=== PATIENT | male | born 1935 | race Caucasian/White ===

== ENCOUNTER 2019-06-17 08:09 | Observation (INO) ==
[2019-06-17] MEDS ORDERED: 0.9 % Sodium Chloride 1,000 ML IVC ONE (08:18)
[2019-06-17] MEDS ORDERED: Potassium Chloride Elixir 20 MEQ/15 ML UDC PO ONE (08:19)
[2019-06-17 08:52] LABS: Basophils % 0.4 %; Eosinophils % 0.2 %; Hematocrit 40.7 % (37.5-50.1); Hemoglobin 13.1 g/dL (12.9-16.9); INR 1.3; Immature Granulocytes % 1.7 % (0-4); Lymphocytes # 0.7 K/mcL (0.6-4.6); Lymphocytes % 6.1 %; Mean Corpuscular HGB Conc 32.2 g/dL (31.6-35.5); Mean Corpuscular Hemoglobin 28.7 pg (28.0-33.3); Mean Corpuscular Volume 89.1 fL (83.0-100.0); Mean Platelet Volume 9.4 fL (9.4-12.4); Monocytes # 0.9 K/mcL (0.0-1.3); Monocytes % 7.9 %; Neutrophils # 9.3 K/mcL (1.6-8.9); Platelet Count 236 K/mcL (140-400); Prothrombin Time 14.3 Seconds (9.4-12.1); Red Blood Count 4.57 M/mcL (4.19-5.50); Red Cell Distribution Width 13.3 % (11.5-14.5); Segmented Neutrophils % 83.7 %; White Blood Count 11.1 K/mcL (4.3-11.1)
[2019-06-17 08:55] LABS: Activated Partial Thrombo Time 26.6 Seconds (26.0-36.0)
[2019-06-17 09:03] LABS: BUN/Creatinine Ratio 30 (6-26); Blood Urea Nitrogen 26 mg/dL (8-23); Calcium 8.8 mg/dL (8.6-10.3); Carbon Dioxide 35 mEq/L (23-29); Chloride 100 mEq/L (98-107); Glucose 54 mg/dL (70-105); Osmolality,Calculated 292 (280-300); Potassium 3.3 mEq/L (3.5-5.1); Sodium 140 mEq/L (136-145); eGFR For African Americans > 60 (> 60); eGFR For Non-African Americans > 60 (> 60)
[2019-06-17 09:21] LABS: Bilirubin,Urine Negative (Negative); Blood,Urine Small (Negative); Clarity,Urine Clear (Clear); Color,Urine Yellow (Yellow); Glucose,Urine (UA) Normal (Normal); Ketones,Urine Negative (Negative); Leukocyte Esterase,Urine Negative (Negative); Nitrite,Urine Negative (Negative); Protein,Urine 30 mg/dL (Neg-Trace); Urobilinogen,Urine >=8.0 mg/dL (Normal)
[2019-06-17 09:54] LABS: Bacteria,Urine Few per hpf (None-Few); RBC,Urine 15-30 per hpf (0-3); Squamous Epithelial Cell,Urine Few per lpf (None-Few); WBC,Urine 0-3 per hpf (0-3)
[2019-06-17 10:11] LABS: Alanine Aminotransferase 64 Units/L (7-52); Albumin 3.2 g/dL (3.5-5.7); Albumin/Globulin Ratio 0.9 (1.1-2.2); Alkaline Phosphatase 89 Units/L (34-104); Amylase 53 Units/L (29-103); Aspartate Amino Transferase 46 Units/L (13-39); Bilirubin,Direct 0.4 mg/dL (0.0-0.2); Bilirubin,Indirect 0.6 mg/dL (0.0-1.0); Globulin 3.5 g/dL (2.4-3.5); Lipase 76 Units/L (11-82); Total Protein 6.7 g/dL (6.4-8.9)
[2019-06-17 10:14] LABS: Troponin I < 0.03 ng/mL (< 0.04)
[2019-06-17] MEDS: 0.9 % Sodium Chloride 1,000 ML IVC SCH ×2 (10:39→19:53)
[2019-06-17] MEDS ORDERED: Naloxone 0.4 MG/ML INJ IVP PRN ×2 (10:45→10:46)
[2019-06-17] MEDS ORDERED: Acetaminophen 325 MG TABLET PO PRN (10:46)
[2019-06-17] MEDS ORDERED: Mag Hydrox/Al Hydrox/Simeth 30 ML UDC PO PRN (10:46)
[2019-06-17] MEDS ORDERED: MOM Conc 10 ML UD.LIQ PO PRN (10:46)
[2019-06-17] MEDS ORDERED: Ondansetron 4 MG/2 ML VIAL IVP PRN (10:46)
[2019-06-17] MEDS ORDERED: D5% in Water 1,000 ML IVC PRN (16:04)
[2019-06-17] MEDS ORDERED: Dextrose Gel 15 GM/37.5 ML TUBE PO PRN ×2 (16:04)
[2019-06-17] MEDS ORDERED: *HR* Dextrose 50 % in Water (Syg) 50 ML SYRINGE IVP PRN (16:04)
[2019-06-17] MEDS: Insulin LISPRO 300 UNITS/3 ML VIAL SQ SCH ×2 (16:43→20:41)
[2019-06-18] MEDS: 0.9 % Sodium Chloride 1,000 ML IVC SCH ×3 (04:12→21:25)
[2019-06-18] MEDS: *HR* Enoxaparin 40 MG/0.4 ML SYRINGE SQ SCH (05:19)
[2019-06-18 07:13] LABS: Basophils % 0.2 %; Eosinophils # 0.1 K/mcL (0.0-0.6); Eosinophils % 0.6 %; Hematocrit 33.2 % (37.5-50.1); Hemoglobin 10.7 g/dL (12.9-16.9); Immature Granulocytes % 2.4 % (0-4); Lymphocytes # 0.8 K/mcL (0.6-4.6); Mean Corpuscular HGB Conc 32.2 g/dL (31.6-35.5); Mean Corpuscular Hemoglobin 28.5 pg (28.0-33.3); Mean Corpuscular Volume 88.5 fL (83.0-100.0); Mean Platelet Volume 9.5 fL (9.4-12.4); Monocytes # 0.8 K/mcL (0.0-1.3); Monocytes % 7.5 %; Neutrophils # 8.9 K/mcL (1.6-8.9); Platelet Count 220 K/mcL (140-400); Red Blood Count 3.75 M/mcL (4.19-5.50); Red Cell Distribution Width 13.5 % (11.5-14.5); Segmented Neutrophils % 82.3 %; White Blood Count 10.8 K/mcL (4.3-11.1)
[2019-06-18] MEDS ORDERED: ATENOLOL 100 MG PO SCH (09:00)
[2019-06-18] MEDS ORDERED: NON-FORMULARY MEDICATION 1 EACH EACH (Losartan/Hydrochlorothiazide [Losartan-Hctz 100-25 M PO SCH (09:00)
[2019-06-18 09:01] LABS: BUN/Creatinine Ratio 29 (6-26); Blood Urea Nitrogen 20 mg/dL (8-23); Calcium 7.7 mg/dL (8.6-10.3); Carbon Dioxide 30 mEq/L (23-29); Chloride 105 mEq/L (98-107); Glucose 110 mg/dL (70-105); Osmolality,Calculated 291 (280-300); Potassium 3.4 mEq/L (3.5-5.1); Sodium 139 mEq/L (136-145); eGFR For African Americans > 60 (> 60); eGFR For Non-African Americans > 60 (> 60)
[2019-06-18] MEDS: Potassium Chloride Elixir 20 MEQ/15 ML UDC PO SCH (09:46)
[2019-06-18] MEDS: Insulin LISPRO 300 UNITS/3 ML VIAL SQ SCH ×4 (09:47→19:53)
[2019-06-18 10:22] LABS: Estimated Average Glucose 148 mg/dl
[2019-06-18] MEDS ORDERED: Potassium Chloride Elixir 20 MEQ/15 ML UDC PO ONE (12:20)
[2019-06-18] MEDS: cefTRIAXone 1,000 MG in Water for inj. (sterile) 10 ML IVP SCH (13:10)
[2019-06-19] MEDS: *HR* Enoxaparin 40 MG/0.4 ML SYRINGE SQ SCH (05:38)
[2019-06-19] MEDS: 0.9 % Sodium Chloride 1,000 ML IVC SCH ×2 (05:39→12:10)
[2019-06-19 06:17] LABS: Hematocrit 33.6 % (37.5-50.1); Hemoglobin 10.6 g/dL (12.9-16.9); Mean Corpuscular HGB Conc 31.5 g/dL (31.6-35.5); Mean Corpuscular Hemoglobin 28.6 pg (28.0-33.3); Mean Corpuscular Volume 90.6 fL (83.0-100.0); Mean Platelet Volume 9.3 fL (9.4-12.4); Platelet Count 246 K/mcL (140-400); Red Blood Count 3.71 M/mcL (4.19-5.50); Red Cell Distribution Width 13.8 % (11.5-14.5); White Blood Count 11.4 K/mcL (4.3-11.1)
[2019-06-19 06:43] LABS: BUN/Creatinine Ratio 27 (6-26); Blood Urea Nitrogen 17 mg/dL (8-23); Calcium 7.8 mg/dL (8.6-10.3); Carbon Dioxide 29 mEq/L (23-29); Chloride 107 mEq/L (98-107); Glucose 122 mg/dL (70-105); Osmolality,Calculated 293 (280-300); Potassium 3.7 mEq/L (3.5-5.1); Sodium 140 mEq/L (136-145); eGFR For African Americans > 60 (> 60); eGFR For Non-African Americans > 60 (> 60)
[2019-06-19] MEDS: Insulin LISPRO 300 UNITS/3 ML VIAL SQ SCH ×2 (07:54→11:46)
[2019-06-19] MEDS: Potassium Chloride Elixir 20 MEQ/15 ML UDC PO SCH (08:31)
[2019-06-19] MEDS: cefTRIAXone 1,000 MG in Water for inj. (sterile) 10 ML IVP SCH (08:32)
[2019-06-19 11:04] VITALS: BP 142/67
[2019-06-19] MEDS ORDERED: Furosemide 20 MG/2 ML VIAL IVP STA (12:43)
== END 2019-06-19 15:08 | disposition home or self-care (01) ==
LOC: EMEROOPIK 08:09 → INPPIK 08:09
PROVIDERS: ADMIT Family Medicine; ATTEND Family Medicine

== ENCOUNTER 2021-10-09 17:06 | Inpatient (IN) ==
[2021-10-09 17:29] LABS: Basophils % 0.3 %; Eosinophils % 0.3 %; Hematocrit 33.4 % (37.5-50.1); Immature Granulocytes % 0.4 % (0-4); Lymphocytes # 0.8 K/mcL (0.6-4.6); Lymphocytes % 10.5 %; Mean Corpuscular HGB Conc 29.9 g/dL (31.6-35.5); Mean Corpuscular Hemoglobin 27.5 pg (28.0-33.3); Mean Platelet Volume 9.1 fL (9.4-12.4); Monocytes # 0.4 K/mcL (0.0-1.3); Monocytes % 5.6 %; Neutrophils # 6.2 K/mcL (1.6-8.9); Platelet Count 293 K/mcL (140-400); Red Blood Count 3.63 M/mcL (4.19-5.50); Red Cell Distribution Width 16.5 % (11.5-14.5); Segmented Neutrophils % 82.9 %; White Blood Count 7.5 K/mcL (4.3-11.1)
[2021-10-09 17:38] LABS: INR 1.7; Prothrombin Time 18.6 Seconds (9.4-12.1)
[2021-10-09 17:41] LABS: Activated Partial Thrombo Time 33.1 Seconds (26.0-36.0)
[2021-10-09 17:49] LABS: BUN/Creatinine Ratio 22 (6-26); Blood Urea Nitrogen 41 mg/dL (8-23); Carbon Dioxide 31 mEq/L (23-29); Chloride 107 mEq/L (98-107); Glucose 112 mg/dL (70-105); Osmolality,Calculated 313 (280-300); Potassium 4.3 mEq/L (3.5-5.1); Sodium 146 mEq/L (136-145); eGFR For African Americans 42 (> 60); eGFR For Non-African Americans 35 (> 60)
[2021-10-09 17:50] LABS: Troponin I < 0.03 ng/mL (< 0.04)
[2021-10-09] MEDS ORDERED: Acetaminophen 325 MG TABLET PO PRN (19:05)
[2021-10-09] MEDS ORDERED: Naloxone 0.4 MG/ML INJ IVP PRN (19:05)
[2021-10-09] MEDS ORDERED: Ondansetron 4 MG/2 ML VIAL IVP PRN (19:05)
[2021-10-09] MEDS ORDERED: Mag Hydrox/Al Hydrox/Simeth 30 ML UDC PO PRN (19:05)
[2021-10-09] MEDS ORDERED: Albumin 25% 25gram/100mL 25 GM/100 ML IV.SOLN IVPB ONE (20:00)
[2021-10-09] MEDS ORDERED: Furosemide 20 MG/2 ML VIAL IVP ONE (20:01)
[2021-10-09] MEDS ORDERED: Dextrose Gel 15 GM/37.5 ML TUBE PO PRN ×2 (20:04)
[2021-10-09] MEDS ORDERED: *HR* Dextrose 50 % in Water (Syg) 50 ML SYRINGE IVP PRN (20:04)
[2021-10-09] MEDS ORDERED: D5% in Water 1,000 ML IVC PRN (20:04)
[2021-10-09] MEDS: Insulin LISPRO 300 UNITS/3 ML VIAL SUBQ SCH (22:42)
[2021-10-09] MEDS: Apixaban 5 MG TABLET PO SCH (22:47)
[2021-10-10] MEDS: Insulin LISPRO 300 UNITS/3 ML VIAL SUBQ SCH ×4 (07:29→22:31)
[2021-10-10 08:33] LABS: Basophils % 0.3 %; Eosinophils % 0.7 %; Hematocrit 29.8 % (37.5-50.1); Hemoglobin 8.9 g/dL (12.9-16.9); Immature Granulocytes % 0.3 % (0-4); Lymphocytes # 0.7 K/mcL (0.6-4.6); Lymphocytes % 11.6 %; Mean Corpuscular HGB Conc 29.9 g/dL (31.6-35.5); Mean Corpuscular Hemoglobin 27.1 pg (28.0-33.3); Mean Corpuscular Volume 90.6 fL (83.0-100.0); Mean Platelet Volume 9.6 fL (9.4-12.4); Monocytes # 0.3 K/mcL (0.0-1.3); Monocytes % 5.1 %; Neutrophils # 4.8 K/mcL (1.6-8.9); Platelet Count 252 K/mcL (140-400); Red Blood Count 3.29 M/mcL (4.19-5.50); Red Cell Distribution Width 16.6 % (11.5-14.5); White Blood Count 5.9 K/mcL (4.3-11.1)
[2021-10-10 09:09] LABS: Calcium 7.8 mg/dL (8.6-10.3); Potassium 3.7 mEq/L (3.5-5.1)
[2021-10-10] MEDS: Aspirin Enteric Coated 81 MG Tablet PO SCH (09:38)
[2021-10-10] MEDS: DilTIAZem CD (24hr) 120 MG CAP.ER.24H PO SCH (09:38)
[2021-10-10] MEDS: Famotidine 20 MG TABLET PO SCH (09:38)
[2021-10-10] MEDS: Cholecalciferol (D-3) 1,000 UNIT (25MCG) TABLET PO SCH (09:38)
[2021-10-10] MEDS: Apixaban 5 MG TABLET PO SCH (09:38)
[2021-10-10] MEDS: Albumin 25% 25gram/100mL 25 GM/100 ML IV.SOLN IVPB SCH ×2 (12:11→22:31)
[2021-10-10] MEDS: Melatonin 3 MG TABLET PO PRN (22:30)
[2021-10-10] MEDS: Apixaban 2.5 MG TABLET PO SCH (22:30)
[2021-10-11 07:40] LABS: Hematocrit 25.5 % (37.5-50.1); Hemoglobin 7.6 g/dL (12.9-16.9); Mean Corpuscular HGB Conc 29.8 g/dL (31.6-35.5); Mean Corpuscular Hemoglobin 27.2 pg (28.0-33.3); Mean Corpuscular Volume 91.4 fL (83.0-100.0); Mean Platelet Volume 9.2 fL (9.4-12.4); Platelet Count 215 K/mcL (140-400); Red Blood Count 2.79 M/mcL (4.19-5.50); Red Cell Distribution Width 16.5 % (11.5-14.5)
[2021-10-11 08:01] LABS: Calcium 8.1 mg/dL (8.6-10.3); Potassium 3.7 mEq/L (3.5-5.1)
[2021-10-11] MEDS: Insulin LISPRO 300 UNITS/3 ML VIAL SUBQ SCH ×4 (09:06→20:17)
[2021-10-11] MEDS: Famotidine 20 MG TABLET PO SCH (09:12)
[2021-10-11] MEDS: Apixaban 2.5 MG TABLET PO SCH ×2 (09:12→20:08)
[2021-10-11] MEDS: Albumin 25% 25gram/100mL 25 GM/100 ML IV.SOLN IVPB SCH ×2 (09:13→20:08)
[2021-10-11] MEDS: Aspirin Enteric Coated 81 MG Tablet PO SCH (09:13)
[2021-10-11] MEDS: DilTIAZem CD (24hr) 120 MG CAP.ER.24H PO SCH (09:13)
[2021-10-11] MEDS: Cholecalciferol (D-3) 1,000 UNIT (25MCG) TABLET PO SCH (09:13)
[2021-10-11] MEDS ORDERED: Furosemide 40 MG/4 ML VIAL IVP SCH (23:00)
[2021-10-12 07:20] LABS: Hemoglobin 8.3 g/dL (12.9-16.9); Mean Corpuscular HGB Conc 30.7 g/dL (31.6-35.5); Mean Corpuscular Hemoglobin 27.4 pg (28.0-33.3); Mean Corpuscular Volume 89.1 fL (83.0-100.0); Mean Platelet Volume 9.5 fL (9.4-12.4); Platelet Count 229 K/mcL (140-400); Red Blood Count 3.03 M/mcL (4.19-5.50); Red Cell Distribution Width 16.6 % (11.5-14.5)
[2021-10-12] MEDS: Insulin LISPRO 300 UNITS/3 ML VIAL SUBQ SCH ×4 (07:25→21:39)
[2021-10-12 07:40] LABS: Calcium 8.5 mg/dL (8.6-10.3); Potassium 3.3 mEq/L (3.5-5.1)
[2021-10-12] MEDS: Albumin 25% 25gram/100mL 25 GM/100 ML IV.SOLN IVPB SCH (07:59)
[2021-10-12] MEDS: Aspirin Enteric Coated 81 MG Tablet PO SCH (08:00)
[2021-10-12] MEDS: Cholecalciferol (D-3) 1,000 UNIT (25MCG) TABLET PO SCH (08:00)
[2021-10-12] MEDS: Famotidine 20 MG TABLET PO SCH (08:00)
[2021-10-12] MEDS: Apixaban 2.5 MG TABLET PO SCH ×2 (08:00→20:21)
[2021-10-12] MEDS: DilTIAZem CD (24hr) 120 MG CAP.ER.24H PO SCH (08:01)
[2021-10-12] MEDS ORDERED: Furosemide 40 MG/4 ML VIAL IVP SCH (11:00)
[2021-10-12] MEDS ORDERED: Furosemide 20 MG/2 ML VIAL IVP SCH (11:00)
[2021-10-12] MEDS ORDERED: D5% in Water 1,000 ML IVC SCH (11:00)
[2021-10-12] MEDS: D5% in Water 1,000 ML IVC SCH (12:05)
[2021-10-13] MEDS: D5% in Water 1,000 ML IVC SCH ×2 (00:18→16:07)
[2021-10-13 06:35] LABS: Hematocrit 25.6 % (37.5-50.1); Hemoglobin 7.8 g/dL (12.9-16.9); Mean Corpuscular HGB Conc 30.5 g/dL (31.6-35.5); Mean Corpuscular Hemoglobin 27.2 pg (28.0-33.3); Mean Corpuscular Volume 89.2 fL (83.0-100.0); Mean Platelet Volume 9.3 fL (9.4-12.4); Platelet Count 217 K/mcL (140-400); Red Blood Count 2.87 M/mcL (4.19-5.50); Red Cell Distribution Width 16.3 % (11.5-14.5); White Blood Count 3.9 K/mcL (4.3-11.1)
[2021-10-13 07:07] LABS: Calcium 8.1 mg/dL (8.6-10.3); Potassium 3.4 mEq/L (3.5-5.1)
[2021-10-13] MEDS ORDERED: acetaZOLAMIDE 250 MG TABLET PO SCH (09:00)
[2021-10-13 09:23] LABS: Hematocrit 27.3 % (37.5-50.1); Hemoglobin 8.2 g/dL (12.9-16.9)
[2021-10-13] MEDS: Insulin LISPRO 300 UNITS/3 ML VIAL SUBQ SCH ×4 (09:32→20:28)
[2021-10-13] MEDS: Cholecalciferol (D-3) 1,000 UNIT (25MCG) TABLET PO SCH (10:27)
[2021-10-13] MEDS: DilTIAZem CD (24hr) 120 MG CAP.ER.24H PO SCH (10:28)
[2021-10-13] MEDS: Aspirin Enteric Coated 81 MG Tablet PO SCH (10:28)
[2021-10-13] MEDS: Famotidine 20 MG TABLET PO SCH (10:28)
[2021-10-13] MEDS: acetaZOLAMIDE 250 MG TABLET PO SCH ×2 (10:29→20:39)
[2021-10-13] MEDS: Apixaban 2.5 MG TABLET PO SCH (10:30)
[2021-10-13 20:42] LABS: Hematocrit 24.7 % (37.5-50.1); Hemoglobin 7.7 g/dL (12.9-16.9)
[2021-10-13] MEDS ORDERED: 0.9 % Sodium Chloride 250 ML ONE (23:50)
[2021-10-14 04:58] LABS: Basophils % 0.4 %; Eosinophils # 0.1 K/mcL (0.0-0.6); Eosinophils % 2.4 %; Hematocrit 31.1 % (37.5-50.1); Hemoglobin 9.7 g/dL (12.9-16.9); Immature Granulocytes % 0.4 % (0-4); Lymphocytes # 0.7 K/mcL (0.6-4.6); Lymphocytes % 14.4 %; Mean Corpuscular HGB Conc 31.2 g/dL (31.6-35.5); Mean Corpuscular Hemoglobin 27.6 pg (28.0-33.3); Mean Corpuscular Volume 88.4 fL (83.0-100.0); Mean Platelet Volume 9.5 fL (9.4-12.4); Monocytes # 0.4 K/mcL (0.0-1.3); Monocytes % 7.5 %; Neutrophils # 3.7 K/mcL (1.6-8.9); Platelet Count 203 K/mcL (140-400); Red Blood Count 3.52 M/mcL (4.19-5.50); Red Cell Distribution Width 16.4 % (11.5-14.5); Segmented Neutrophils % 74.9 %; White Blood Count 4.9 K/mcL (4.3-11.1)
[2021-10-14 05:13] LABS: Calcium 7.9 mg/dL (8.6-10.3); Potassium 3.3 mEq/L (3.5-5.1)
[2021-10-14] MEDS: Insulin LISPRO 300 UNITS/3 ML VIAL SUBQ SCH ×4 (07:30→20:58)
[2021-10-14] MEDS: Aspirin Enteric Coated 81 MG Tablet PO SCH (08:37)
[2021-10-14] MEDS: Cholecalciferol (D-3) 1,000 UNIT (25MCG) TABLET PO SCH (08:37)
[2021-10-14] MEDS: DilTIAZem CD (24hr) 120 MG CAP.ER.24H PO SCH (08:38)
[2021-10-14] MEDS: acetaZOLAMIDE 250 MG TABLET PO SCH ×2 (08:38→21:10)
[2021-10-14] MEDS: Famotidine 20 MG TABLET PO SCH (08:39)
[2021-10-14] MEDS: Melatonin 3 MG TABLET PO PRN (21:10)
[2021-10-15 06:32] LABS: Basophils % 0.4 %; Eosinophils # 0.1 K/mcL (0.0-0.6); Eosinophils % 2.2 %; Hemoglobin 9.8 g/dL (12.9-16.9); Immature Granulocytes % 0.4 % (0-4); Lymphocytes # 0.7 K/mcL (0.6-4.6); Lymphocytes % 13.9 %; Mean Corpuscular HGB Conc 30.6 g/dL (31.6-35.5); Mean Corpuscular Hemoglobin 27.4 pg (28.0-33.3); Mean Corpuscular Volume 89.4 fL (83.0-100.0); Mean Platelet Volume 9.7 fL (9.4-12.4); Monocytes # 0.4 K/mcL (0.0-1.3); Monocytes % 8.5 %; Neutrophils # 3.8 K/mcL (1.6-8.9); Platelet Count 216 K/mcL (140-400); Red Blood Count 3.58 M/mcL (4.19-5.50); Red Cell Distribution Width 17.2 % (11.5-14.5); Segmented Neutrophils % 74.6 %
[2021-10-15 06:47] LABS: Calcium 7.8 mg/dL (8.6-10.3); Magnesium 1.9 mg/dL (1.6-2.6); Potassium 3.4 mEq/L (3.5-5.1)
[2021-10-15] MEDS: Insulin LISPRO 300 UNITS/3 ML VIAL SUBQ SCH ×4 (07:21→21:18)
[2021-10-15] MEDS: DilTIAZem CD (24hr) 120 MG CAP.ER.24H PO SCH (08:11)
[2021-10-15] MEDS: Famotidine 20 MG TABLET PO SCH (08:11)
[2021-10-15] MEDS: Aspirin Enteric Coated 81 MG Tablet PO SCH (08:12)
[2021-10-15] MEDS: Cholecalciferol (D-3) 1,000 UNIT (25MCG) TABLET PO SCH (08:12)
[2021-10-15] MEDS: acetaZOLAMIDE 250 MG TABLET PO SCH (08:12)
[2021-10-15] MEDS: D5% in 0.45% NACL 1,000 ML IVC SCH (16:30)
[2021-10-15] MEDS: Apixaban 2.5 MG TABLET PO SCH (20:06)
[2021-10-16] MEDS: D5% in 0.45% NACL 1,000 ML IVC SCH (01:00)
[2021-10-16 03:01] LABS: Basophils % 0.4 %; Eosinophils # 0.1 K/mcL (0.0-0.6); Eosinophils % 2.1 %; Hematocrit 31.8 % (37.5-50.1); Hemoglobin 9.7 g/dL (12.9-16.9); Immature Granulocytes % 0.4 % (0-4); Lymphocytes # 0.7 K/mcL (0.6-4.6); Lymphocytes % 14.3 %; Mean Corpuscular HGB Conc 30.5 g/dL (31.6-35.5); Mean Corpuscular Hemoglobin 27.5 pg (28.0-33.3); Mean Corpuscular Volume 90.1 fL (83.0-100.0); Mean Platelet Volume 9.9 fL (9.4-12.4); Monocytes # 0.4 K/mcL (0.0-1.3); Neutrophils # 3.5 K/mcL (1.6-8.9); Platelet Count 216 K/mcL (140-400); Red Blood Count 3.53 M/mcL (4.19-5.50); Segmented Neutrophils % 73.8 %; White Blood Count 4.7 K/mcL (4.3-11.1)
[2021-10-16 03:18] LABS: Calcium 7.8 mg/dL (8.6-10.3); Potassium 3.3 mEq/L (3.5-5.1)
[2021-10-16] MEDS: Insulin LISPRO 300 UNITS/3 ML VIAL SUBQ SCH ×4 (07:29→22:00)
[2021-10-16] MEDS ORDERED: D5% in Water 1,000 ML IVC SCH ×2 (08:30→15:45)
[2021-10-16] MEDS: Cholecalciferol (D-3) 1,000 UNIT (25MCG) TABLET PO SCH (09:52)
[2021-10-16] MEDS: Aspirin Enteric Coated 81 MG Tablet PO SCH (09:52)
[2021-10-16] MEDS: DilTIAZem CD (24hr) 120 MG CAP.ER.24H PO SCH (09:52)
[2021-10-16] MEDS: Famotidine 20 MG TABLET PO SCH (09:53)
[2021-10-16] MEDS: Apixaban 2.5 MG TABLET PO SCH ×2 (09:54→19:43)
[2021-10-16 11:18] LABS: Bilirubin,Urine Negative (Negative); Blood,Urine Negative (Negative); Clarity,Urine Clear (Clear); Color,Urine Yellow (Yellow); Glucose,Urine (UA) Normal (Normal); Ketones,Urine Negative (Negative); Leukocyte Esterase,Urine Negative (Negative); Nitrite,Urine Negative (Negative); PH,Urine 7.5 pH Units (5.0-8.0); Protein,Urine Negative (Neg-Trace); Specific Gravity,Urine 1.015 (1.010-1.025); Urobilinogen,Urine Normal (Normal)
[2021-10-16 13:27] LABS: Protein/Creatinine Ratio,Urine 0.24 mg/mg (0.00-0.20); Sodium, Urine 32.9 mEq/L
[2021-10-16] MEDS: Sennosides/Docusate Sodium TABLET PO SCH (20:23)
[2021-10-17 07:39] LABS: Basophils % 0.4 %; Eosinophils # 0.1 K/mcL (0.0-0.6); Eosinophils % 1.5 %; Hematocrit 31.4 % (37.5-50.1); Hemoglobin 9.6 g/dL (12.9-16.9); Immature Granulocytes % 0.4 % (0-4); Lymphocytes # 0.6 K/mcL (0.6-4.6); Lymphocytes % 11.6 %; Mean Corpuscular HGB Conc 30.6 g/dL (31.6-35.5); Mean Corpuscular Hemoglobin 27.4 pg (28.0-33.3); Mean Corpuscular Volume 89.7 fL (83.0-100.0); Mean Platelet Volume 9.5 fL (9.4-12.4); Monocytes # 0.5 K/mcL (0.0-1.3); Monocytes % 10.1 %; Neutrophils # 4.1 K/mcL (1.6-8.9); Platelet Count 219 K/mcL (140-400); Red Cell Distribution Width 16.7 % (11.5-14.5); White Blood Count 5.4 K/mcL (4.3-11.1)
[2021-10-17 08:01] LABS: Calcium 8.1 mg/dL (8.6-10.3); Potassium 3.5 mEq/L (3.5-5.1)
[2021-10-17] MEDS: Aspirin Enteric Coated 81 MG Tablet PO SCH (08:24)
[2021-10-17] MEDS: Apixaban 2.5 MG TABLET PO SCH ×2 (08:25→20:17)
[2021-10-17] MEDS ORDERED: Albumin 25% 25gram/100mL 25 GM/100 ML IV.SOLN IVPB ONE (08:33)
[2021-10-17] MEDS: DilTIAZem CD (24hr) 120 MG CAP.ER.24H PO SCH (08:53)
[2021-10-17] MEDS: Cholecalciferol (D-3) 1,000 UNIT (25MCG) TABLET PO SCH (08:53)
[2021-10-17] MEDS: Sennosides/Docusate Sodium TABLET PO SCH ×2 (08:53→20:17)
[2021-10-17] MEDS: Famotidine 20 MG TABLET PO SCH (08:54)
[2021-10-17] MEDS: Insulin LISPRO 300 UNITS/3 ML VIAL SUBQ SCH ×4 (09:00→20:19)
[2021-10-17] MEDS ORDERED: Furosemide 20 MG TABLET PO SCH (09:00)
[2021-10-17] MEDS ORDERED: Furosemide 20 MG/2 ML VIAL IVP ONE (10:00)
[2021-10-17 16:48] LABS: Basophils % 0.2 %; Eosinophils # 0.1 K/mcL (0.0-0.6); Eosinophils % 1.1 %; Hemoglobin 9.3 g/dL (12.9-16.9); Immature Granulocytes % 0.5 % (0-4); Lymphocytes # 0.7 K/mcL (0.6-4.6); Lymphocytes % 12.5 %; Mean Corpuscular Hemoglobin 28.1 pg (28.0-33.3); Mean Corpuscular Volume 90.6 fL (83.0-100.0); Mean Platelet Volume 8.9 fL (9.4-12.4); Monocytes # 0.5 K/mcL (0.0-1.3); Monocytes % 8.8 %; Neutrophils # 4.4 K/mcL (1.6-8.9); Platelet Count 206 K/mcL (140-400); Red Blood Count 3.31 M/mcL (4.19-5.50); Red Cell Distribution Width 16.9 % (11.5-14.5); Segmented Neutrophils % 76.9 %; White Blood Count 5.7 K/mcL (4.3-11.1)
[2021-10-17] MEDS ORDERED: D5% in Water 1,000 ML IVC SCH (18:00)
[2021-10-18] MEDS: Insulin LISPRO 300 UNITS/3 ML VIAL SUBQ SCH ×3 (08:11→16:31)
[2021-10-18 08:57] LABS: Basophils % 0.4 %; Eosinophils # 0.1 K/mcL (0.0-0.6); Hematocrit 29.9 % (37.5-50.1); Hemoglobin 9.2 g/dL (12.9-16.9); Immature Granulocytes % 0.2 % (0-4); Lymphocytes # 0.7 K/mcL (0.6-4.6); Lymphocytes % 13.1 %; Mean Corpuscular HGB Conc 30.8 g/dL (31.6-35.5); Mean Corpuscular Hemoglobin 27.6 pg (28.0-33.3); Mean Corpuscular Volume 89.8 fL (83.0-100.0); Mean Platelet Volume 9.5 fL (9.4-12.4); Monocytes # 0.3 K/mcL (0.0-1.3); Monocytes % 6.7 %; Platelet Count 216 K/mcL (140-400); Red Blood Count 3.33 M/mcL (4.19-5.50); Red Cell Distribution Width 16.8 % (11.5-14.5); Segmented Neutrophils % 78.6 %
[2021-10-18 09:31] LABS: BUN/Creatinine Ratio 23 (6-26); Blood Urea Nitrogen 30 mg/dL (8-23); Calcium 8.3 mg/dL (8.6-10.3); Carbon Dioxide 30 mEq/L (23-29); Chloride 117 mEq/L (98-107); Glucose 92 mg/dL (70-105); Osmolality,Calculated 320 (280-300); Potassium 2.9 mEq/L (3.5-5.1); Sodium 152 mEq/L (136-145); eGFR For African Americans > 60 (> 60); eGFR For Non-African Americans 51 (> 60)
[2021-10-18] MEDS: DilTIAZem CD (24hr) 120 MG CAP.ER.24H PO SCH (09:33)
[2021-10-18] MEDS: Sennosides/Docusate Sodium TABLET PO SCH (09:33)
[2021-10-18] MEDS: Aspirin Enteric Coated 81 MG Tablet PO SCH (09:33)
[2021-10-18] MEDS: Cholecalciferol (D-3) 1,000 UNIT (25MCG) TABLET PO SCH (09:33)
[2021-10-18] MEDS: Famotidine 20 MG TABLET PO SCH (09:33)
[2021-10-18] MEDS ORDERED: *HR* Metoprolol 5 MG/5 ML VIAL IVP ONE (10:32)
[2021-10-18 17:19] LABS: BUN/Creatinine Ratio 23 (6-26); Blood Urea Nitrogen 29 mg/dL (8-23); Calcium 8.5 mg/dL (8.6-10.3); Carbon Dioxide 33 mEq/L (23-29); Chloride 115 mEq/L (98-107); Glucose 97 mg/dL (70-105); Osmolality,Calculated 318 (280-300); Potassium 3.6 mEq/L (3.5-5.1); Sodium 151 mEq/L (136-145); eGFR For African Americans > 60 (> 60); eGFR For Non-African Americans 55 (> 60)
[2021-10-18] MEDS ORDERED: D5% in Water 1,000 ML IVC SCH (17:45)
[2021-10-18 19:02] VITALS: BP 145/71; PULSE 70; RESP 16; TEMP 98.6; O2SAT 96
== END 2021-10-18 21:05 | disposition short-term general hospital (02) | DRG 291 ==
LOC: EMEROOPIK 17:06 → INPPIK 17:06
PROVIDERS: ADMIT Student in an Organized Health Care Education/Training Program; ATTEND Family Medicine

== ENCOUNTER 2021-10-15 10:56 | Inpatient (IN) | END 2021-10-15 15:19 | disposition still patient (30) | DRG 683 | LOC: INPPIK 11:58 | PROVIDERS: ADMIT Internal Medicine; ATTEND Internal Medicine ==